=== PATIENT | male | born 1960 | race African-American/Black ===

== ENCOUNTER 2021-05-31 15:52 | Emergency (ER) | payer MEDICAID ==
[~2021-05-31] VITALS: Ht 175.3 cm; Wt 74.0 kg
[2021-05-31] MEDS ORDERED: BACITRACIN ZINC OINT UDPKT TOP ONE (16:30)
[2021-05-31] MEDS ORDERED: TETANUS, DIPHTHERIA, PERTUSSIS VAC/PF 0.5ML (>10YR OLD) IM ONE (16:30)
[2021-05-31] MEDS ORDERED: TRAMADOL 50MG TABLET PO ONE (16:30)
[2021-05-31 17:45] VITALS: BP 123/71
[2021-05-31] MEDS ORDERED: IBUP-2029 MT (17:55)
== END 2021-05-31 18:13 | disposition home or self-care (01) ==
LOC: ER 15:52
DX: S00.83XA Contusion of other part of head, initial encounter (principal); H11.31 Conjunctival hemorrhage, right eye; Y04.2XXA Assault by strike against or bumped into by another person, initial encounter; M50.31 Other cervical disc degeneration, high cervical region; M50.323 Other cervical disc degeneration at C6-C7 level; M48.02 Spinal stenosis, cervical region; Y93.89 Activity, other specified; Y92.89 Other specified places as the place of occurrence of the external cause
CPT/HCPCS: 70486; 90715; 99284

== ENCOUNTER 2022-10-22 12:06 | Emergency (ER) | payer MEDICAID, OTHER ==
[~2022-10-22] VITALS: Ht 175.3 cm; Wt 77.1 kg
[~2022-10-22 12:06] MED LIST: IBUP-2029 MT
[2022-10-22 12:30] VITALS: O2SAT 99
[2022-10-22 14:24] VITALS: BP 107/73; PULSE 72; RESP 16; TEMP 98.5
[2022-10-22] MEDS ORDERED: ACETAMINOPHEN 325MG TABLET PO STA (14:24)
[2022-10-22] MEDS ORDERED: KETOROLAC 30MG/ML VIAL IV STA (14:24)
[2022-10-22] MEDS ORDERED: LIDOCAINE HCL/EPINEPHRINE 1%-EPI 1:100,000 20 ML VIAL INFIL ONE (14:30)
[2022-10-22] MEDS ORDERED: LIDOCAINE HCL 1% 20ML VIAL (Pyxis) INJ INFIL STA (15:01)
[2022-10-22 15:18] LABS: CHLORIDE 102 mEq/L (98-107); INDEX HEMOLYSI 1 (1-3); INDEX ICTERIC 1 (1-4); INDEX LIPEMIC 1 (1-3); SODIUM 136 mEq/L (136-145)
[2022-10-22 15:21] LABS: PROTHROMBIN TIME 10.6 sec (9.6-11.0)
[2022-10-22 15:26] LABS: BASOPHILS % 0.5 % (0.0-2.0); EOSINOPHILS % 4.6 % (0.0-5.0); HEMATOCRIT. 39.4 % (42.0-52.0); HEMOGLOBIN. 13.7 g/dL (14.0-18.0); LYMPHOCYTES % 19.3 % (20.0-50.0); MEAN CORPUSCULAR HEMOGLOBIN 27.9 pg (28.0-32.0); MEAN CORPUSCULAR HGB CONC 34.9 g/dL (31.0-37.0); MEAN CORPUSCULAR VOLUME 79.8 fL (80.0-94.0); MONOCYTES % 7.5 % (2.0-8.0); NEUTROPHILS % 68.1 % (40.0-76.0); RED BLOOD CELL COUNT 4.93 mill/uL (4.7-6.1); RED CELL DISTRIBUTION WIDTH 15.8 % (11.6-14.6); WHITE BLOOD COUNT 6.8 x1000/uL (4.5-11.0)
[2022-10-22 15:29] LABS: ALANINE AMINOTRANSFERASE 40 IU/L (13-61); ALBUMIN 3.5 g/dL (3.4-5.0); ASPARTATE AMINOTRANSFERASE 36 IU/L (15-37); BILIRUBIN TOTAL 1.1 mg/dL (0.1-1.0); CALCIUM 8.8 mg/dL (8.5-10.1); CARBON DIOXIDE 29 mEq/L (21-32); CREATININE 0.9 mg/dL (0.6-1.3); GLUCOSE 85 mg/dL (70-105); UREA NITROGEN BLOOD 16 mg/dL (7-21)
[2022-10-22 15:36] LABS: DIFFERENTIAL COMMENT 1
[2022-10-22 16:47] LABS: ERYTHROCYTE SEDIMENTATION RATE 6 mm/hr (0-20); MEAN PLATELET VOLUME 10.6 fl (7.4-10.4); PLATELET 146 x1000/uL (130-400)
[2022-10-22 21:17] LABS: BODY FLUID MONOCYTES 9 %; BODY FLUID RBC 520 /cu mm (0-2000); BODY FLUID WBC 45 /cu mm (0-200)
== END 2022-10-22 22:20 | disposition home or self-care (01) ==
LOC: ER 12:06
DX: M25.461 Effusion, right knee (principal)
CPT/HCPCS: 99284; 20610; 96374; 80053; 85025; 85610; 85651; 87070; 87205; 89050; 89060; 36415; 73560; J1885; J3490

== ENCOUNTER 2024-06-12 12:10 | Emergency (ER) | payer OTHER ==
[~2024-06-12] VITALS: Ht 175.3 cm; Wt 75.0 kg
[2024-06-12 12:20] VITALS: BP 127/87; PULSE 78; RESP 18; TEMP 36.7; O2SAT 100; O2SAT 98
[2024-06-12] MEDS ORDERED: OCUFLX RIGHTEYE (13:33)
[2024-06-12] MEDS: FLUORESCEIN SODIUM 1MG/STRIP EACHEYE ONE (13:41)
[2024-06-12] MEDS: TETRACAINE 0.5% OPHTH DROPS 4ML EACHEYE ONE (13:41)
== END 2024-06-12 13:56 | disposition home or self-care (01) ==
LOC: ER 12:10
DX: H10.31 Unspecified acute conjunctivitis, right eye (principal); Z98.890 Other specified postprocedural states
CPT/HCPCS: 99283

== ENCOUNTER 2024-06-14 16:46 | Emergency (ER) | payer OTHER ==
[~2024-06-14] VITALS: Ht 172.7 cm; Wt 68.0 kg
[~2024-06-14 16:46] MED LIST changes: +OCUFLX RIGHTEYE
[2024-06-14 16:54] VITALS: O2SAT 97
[2024-06-14] MEDS ORDERED: AMOX1TAB16 MT (20:44)
[2024-06-14] MEDS ORDERED: SULF1TAB48 MT (20:44)
[2024-06-14] MEDS ORDERED: ERYT1OIN6 RIGHTEYE (20:44)
[2024-06-14 21:12] VITALS: BP 108/64; PULSE 80; RESP 18; TEMP 36.7; O2SAT 99
[2024-06-14 21:22] VITALS: TEMP 98
[2024-06-14] MEDS: CEFTRIAXONE SODIUM 1G VIAL IM NR (21:22)
[2024-06-14] MEDS: ACETAMINOPHEN 325MG TABLET PO NR (21:22)
[2024-06-14] MEDS: LIDOCAINE HCL/PF 1% 10 MG/ML 5ML VIAL INFIL NR (21:22)
== END 2024-06-14 21:23 | disposition home or self-care (01) ==
LOC: ER 16:46
DX: L03.213 Periorbital cellulitis (principal); H00.011 Hordeolum externum right upper eyelid; Z79.899 Other long term (current) drug therapy
CPT/HCPCS: 99283; Z7610 ×2

== ENCOUNTER 2024-10-29 10:06 | Emergency (ER) | payer OTHER ==
[~2024-10-29] VITALS: Ht 172.7 cm; Wt 68.0 kg
[~2024-10-29 10:06] MED LIST changes: +AMOX1TAB16 MT; +ERYT1OIN6 RIGHTEYE; +SULF1TAB48 MT
[2024-10-29 10:14] VITALS: O2SAT 99
[2024-10-29] MEDS ORDERED: CEPH500T MT (10:33)
[2024-10-29] MEDS ORDERED: HYDR453.3 TP (10:33)
[2024-10-29] MEDS: KETOROLAC 30MG/ML VIAL IM ONE (10:45)
[2024-10-29 10:51] VITALS: BP 120/77; PULSE 90; RESP 18; TEMP 36.7; O2SAT 99
== END 2024-10-29 10:58 | disposition home or self-care (01) ==
LOC: ER 10:06
DX: L73.9 Follicular disorder, unspecified (principal)
CPT/HCPCS: 99283; 96372; J1885